=== PATIENT | female | born 1965 | race Caucasian/White ===

== ENCOUNTER → 2017-09-29 | Outpatient (CLI) | payer OTHER ==
[2014-12-08 08:35] VITALS: BP 145/80
[~2017-09-29] MED LIST: CETI10TA22 PO; ESOM40CA PO; LISI-334 PO
--- NOTE | 2017-09-29 08:55 | RAD ---
DATE: 09/29/2017 EXAM: DIGITAL SCREEN BILAT W/CAD HISTORY: Routine screening COMPARISON: 09/28/2016, 07/08/2015 This study was interpreted with the benefit of Computerized Aided Detection (CAD). The breast parenchyma is heterogeneously dense, which could reduce sensitivity of mammography. Breast parenchyma level C. FINDINGS: The fibroglandular tissues in the upper outer quadrant are heterogeneously dense. They are mildly asymmetric with increased density laterally on the left compared to the right. This appearance is unchanged since the previous studies. No new or enlarging breast density is seen. No suspicious microcalcifications are evident. IMPRESSION: Stable mammograms without evidence of malignancy. BI-RADS CATEGORY: 2 BENIGN FINDING(S) RECOMMENDED FOLLOW-UP: 12M 12 MONTH FOLLOW-UP PQRS compliance statement: Patient information was entered into a reminder system with a target due date for the next mammogram. Mammography is a sensitive method for finding small breast cancers, but it does not detect them all and is not a substitute for careful clinical examination. A negative mammogram does not negate a clinically suspicious finding and should not result in delay in biopsying a clinically suspicious abnormality. "Our facility is accredited by the [employer]."
== END | disposition home or self-care (01) ==
LOC: MAMMO 07:50
PROVIDERS: ATTEND Obstetrics & Gynecology
DX: Z12.31 Encounter for screening mammogram for malignant neoplasm of breast (principal)
CPT/HCPCS: G0202; 77067

== ENCOUNTER → 2018-08-27 | Outpatient (CLI) | payer OTHER ==
[2014-12-08 08:35] VITALS: BP 145/80
[2018-08-27 10:00] LABS: BASO # 0.1 x10^3/uL (0.0-0.2); BASO % 1 % (0-3); EOS # 0.4 x10^3/uL (0.0-0.7); EOS % 6 % (0-3); HEMATOCRIT 45.5 % (36.0-47.0); HEMOGLOBIN 15.8 g/dL (12.0-15.5); LYMPH # 1.7 x10^3/uL (1.0-4.8); LYMPH % 25 % (24-48); MEAN CORPUSCULAR HEMOGLOBIN 29 pg (25-35); MEAN CORPUSCULAR HGB CONC 35 g/dL (31-37); MEAN CORPUSCULAR VOLUME 84 fL (79-100); MONO # 0.5 x10^3/uL (0.0-1.1); MONO % 7 % (0-9); NEUT # 4.3 x10^3uL (1.8-7.7); NEUT % 61 % (31-73); PLATELET COUNT 235 x10^3/uL (140-400); RED CELL DISTRIBUTION WIDTH 13.3 % (11.5-14.5); WHITE BLOOD COUNT 7.1 x10^3/uL (4.0-11.0)
[2018-08-27 10:04] LABS: ALBUMIN 3.9 g/dL (3.4-5.0); ALBUMIN/GLOBULIN RATIO 1.1 (1.0-1.7); CALCIUM 9.1 mg/dL (8.5-10.1); CREATININE 1.1 mg/dL (0.6-1.0); GFR 51.6; POTASSIUM 4.2 mmol/L (3.5-5.1); TOTAL BILIRUBIN 0.7 mg/dL (0.2-1.0); TOTAL PROTEIN 7.4 g/dL (6.4-8.2)
[2018-08-27 17:09] LABS: FREE T4 0.93 ng/dL (0.76-1.46); THYROID STIM HORMONE (TSH) 3.143 uIU/mL (0.358-3.740)
== END | disposition home or self-care (01) ==
LOC: LAB 08:27
PROVIDERS: ATTEND Physician Assistant Medical
DX: I10 Essential (primary) hypertension (principal)
CPT/HCPCS: 36415; 80053; 80061; 84439; 84443; 84481; 85025

== ENCOUNTER → 2019-10-29 | Outpatient (CLI) | payer OTHER ==
[2014-12-08 08:35] VITALS: BP 145/80
[~2019-10-29] MED LIST changes: -CETI10TA22 PO; +CETI10TA24 PO
--- NOTE | 2019-10-30 19:50 | RAD ---
History: Routine screening. Technique: Bilateral digital mammographic routine views were obtained with CAD - computer aided detection. Comparison: 09/29/2017. Findings: Breast Tissue Density C : The breast tissue is heterogeneously dense. Scattered fibroglandular elements may obscure underlying pathology. The right mammogram is negative. The left mammogram shows a new cluster of calcifications in the lateral middle third left breast in an area of asymmetrically denser breast tissue. This needs additional imaging with spot magnification views, a full-field lateral view, and possible targeted left breast ultrasound. Impression: BI-RADS Category 0: Incomplete: Need additional imaging evaluation. Left breast needs additional imaging with magnification views, lateral view, and possible targeted ultrasound.. Your mammogram demonstrates that you have dense breast tissue, which could hide abnormalities, and if you have other risk factors for breast cancer that have been identified, you might benefit from supplemental screening tests that may be suggested by your ordering physician. Dense breast tissue, in and of itself, is a relatively common condition. This information is not provided to cause undue concern, but rather to raise your awareness and to promote discussion with your physician regarding the presence of other risk factors, in addition to dense breast tissue. A report of your mammography results will be sent to you and your physician. You should contact your physician if you have any questions or concerns regarding this report. A mammogram does not have 100% sensitivity and therefore a negative imaging study should not delay further work up of a suspicious abnormality. The patient will receive a letter with the results in the mail. Patient information is entered into the reminder system with a target due date for the next screening mammogram. The patient will receive a reminder. "Our facility is accredited by the [employer] Mammography [employer]." BI-RADS 0 -- incomplete assessment
== END | disposition home or self-care (01) ==
LOC: MAMMO 07:41
PROVIDERS: ATTEND Obstetrics & Gynecology
DX: Z12.31 Encounter for screening mammogram for malignant neoplasm of breast (principal); N64.89 Other specified disorders of breast
CPT/HCPCS: 77067

== ENCOUNTER → 2019-11-18 | Outpatient (CLI) | payer OTHER ==
[2014-12-08 08:35] VITALS: BP 145/80
--- NOTE | 2019-11-18 14:08 | RAD ---
Examination: 1. Left diagnostic mammogram. 2. Left targeted breast ultrasound. INDICATION: Screening recall for developing calcifications in the upper-outer left breast COMPARISON: 10/29/2019 and 09/29/2017 bilateral mammograms FINDINGS: Additional mammographic views of the left breast with magnification in the CC and MLO projections as well as a full-field lateral view revealed heterogeneously dense breast parenchyma with no dominant mass, architectural distortion or suspicious appearing calcifications. The clustered calcifications recalled from screening in the middle third upper outer left breast represent four rounded calcifications, resembling benign lobular calcifications. Targeted ultrasound of the upper-outer quadrant left breast in search of a sonographic correlate revealed no suspicious sonographic findings or definite sonographic correlate to the calcifications seen on mammographic screening. IMPRESSION: Probably benign cluster of calcifications in the upper outer left breast. Recommend six-month follow-up left diagnostic mammogram. BI-RADS Category 3 Probably benign Patient entered into a reminder system with target due date for next mammogram.
== END | disposition home or self-care (01) ==
LOC: MAMMO 12:40
PROVIDERS: ATTEND Obstetrics & Gynecology
DX: R92.2 Inconclusive mammogram (principal)
CPT/HCPCS: 76641; 77065